=== PATIENT | male | born 1965 | race Caucasian/White ===

== ENCOUNTER 2017-07-25 08:10 | Emergency (ER) | payer OTHER ==
[~2017-07-25] VITALS: Ht 170.2 cm; Wt 67.2 kg
[~2017-07-25 08:10] MED LIST: ALPR0.25 PO; AMIO200T PO; AMOX1TAB12 PO; ASPI-621 PO; FURO-92 PO; HYDR-3245 PO; IPRA3AMP NPPB; LORA10TA62 PO; METO25TA35 PO/NG; POTA20TA14 PO; QUET50TA5 PO; WARF5TAB7 PO-COUM
[2017-07-25] MEDS ORDERED: OXYC-302 PO (08:46)
[2017-07-25] MEDS ORDERED: SODIUM CHLORIDE 0.9% 1,000ML IVBOLUS ONE (09:00)
[2017-07-25] MEDS ORDERED: SODIUM CHLORIDE FLUSH 10ML SYR IVF ONE (09:00)
[2017-07-25 09:11] LABS: HEMATOCRIT 42.8 % (39.2-51.8); HEMOGLOBIN 14.5 g/dL (13.7-18.0); WHITE BLOOD COUNT 5.1 x10^3/uL (3.4-10)
[2017-07-25 09:22] LABS: ASPARTATE AMINO TRANSFERASE 91 U/L (15-37); BLOOD UREA NITROGEN 14 mg/dL (7-18)
[2017-07-25 10:41] VITALS: BP 162/103
== END 2017-07-25 10:43 | disposition home or self-care (01) ==
LOC: ED 10:12
DX: R25.1 Tremor, unspecified (principal)
CPT/HCPCS: 36415; 71020; 80053; 83690; 85025; 93005; 96360; 99285; J7030

== ENCOUNTER 2019-02-19 10:46 | Inpatient (IN) | payer MEDICAID, OTHER ==
[~2019-02-19] VITALS: Ht 170.2 cm; Wt 63.1 kg
[~2019-02-19 10:46] MED LIST changes: -ASPI-621 PO; +ASPI81TA45 PO; -IPRA3AMP NPPB; +IPRA3AMP30 NPPB; +OXYC-302 PO; +WARF-36 PO-COUM; -WARF5TAB7 PO-COUM
--- NOTE | 2019-02-19 10:59 | NUR ---
PT BIB [facility] FOR A WITNESSED SYNCOPAL EVENT WITH POSSIBLE SEIZURE ACTIVITY LASTING 1 MINUTE PER FAMILY. PT STATES THAT HE HAD SOME ALCOHOL THIS AM. PT ALSO STATED THAT HE HAS HAD A DECREASED APPETITIE DUE TO AN UPSET STOMACH FOR A NUMBER OF DAYS. PT A&OX4. EKG DONE AND PRESENTED TO MD. PT PLACED ON BP, CARDAIC, AND CONT. PULSE OXIMETER. ASSESSMENT COMPLETED. IV STARTED IN FIELD. BLOOD GLUCOSE PER AMBULANCE: 154. LACERATION ON LEFT EYE BROW. JIMI NICHOLSON. CALL LIGHT IN REACH AND 2 SIDE RAILS UP. REPORT GIVEN TO DONTRELL TATE
--- NOTE | 2019-02-19 11:06 | NUR ---
C/O N/V x several days. Patient states he drinks up to 6 beers per day and has been unable to drink because of the N/V. Patient had one beer this AM. Tachycardic. Fluids hung. Other than minor pain from eyebrow lac, patient denies all complaints. A&Ox 4 and behaving appropriately with staff.
--- NOTE | 2019-02-19 11:35 | NUR ---
HR=90 after 1 L NS.
[2019-02-19] MEDS ORDERED: SODIUM CHLORIDE FLUSH 10ML SYR IVF ONE (12:00)
[2019-02-19] MEDS ORDERED: THIAMINE 100 MG in SODIUM CHLORIDE 0.9% 50 ML IVPB ONE (12:00)
[2019-02-19] MEDS ORDERED: LORazepam 2 MG/ML, 1ML IVPush PRN (12:00)
[2019-02-19] MEDS ORDERED: SODIUM CHLORIDE 0.9%, 500ML IVBOLUS ONE (12:30)
[2019-02-19 12:35] LABS: ALANINE AMINOTRANSFERASE 78 U/L (12-78); ALBUMIN 3.8 g/dL (3.4-5.0); ANION GAP 7 mmol/L (5-15); CALCIUM 8.9 mg/dL (8.5-10.1); CHLORIDE 100 mmol/L (98-107); CREATININE 0.71 mg/dL (0.7-1.3)
[2019-02-19 12:37] LABS: ALKALINE PHOSPHATASE 72 U/L (45-117); BILIRUBIN,TOTAL 0.8 mg/dL (0.2-1.0); TOTAL PROTEIN 8.1 g/dL (6.4-8.2)
[2019-02-19] MEDS ORDERED: DIPH,PERTUSS(ACELL),TET VAC/PF 0.5 ML IM-VACC ONE ×2 (12:39→13:00)
[2019-02-19] MEDS ORDERED: ONDANSETRON 2MG/ML, 2ML ONE (12:46)
[2019-02-19] MEDS ORDERED: MORPHINE SULFATE 4 MG/ML, 1ML ONE (12:46)
[2019-02-19 12:50] LABS: BASOPHILS # (AUTO) 0.01 x10^3/uL (0-0.1); BASOPHILS % (AUTO) 0 % (0-1); EOSINOPHILS # (AUTO) 0.01 x10^3/uL (0-0.4); EOSINOPHILS % (AUTO) 0 % (1-7); LYMPHOCYTES # (AUTO) 0.51 x10^3/uL (1-3.4); LYMPHOCYTES % (AUTO) 18 % (22-44); MD SCAN; MEAN CORPUSCULAR HEMOGLOBIN 33.7 pg (27.5-34.5); MEAN CORPUSCULAR HGB CONC 34.6 g/dL (33.2-36.2); MEAN CORPUSCULAR VOLUME 97.3 fL (81-97); MEAN PLATELET VOLUME 9.2 fL (7.4-10.4); MONOCYTES % (AUTO) 11 % (2-9); NEUTROPHILS # (AUTO) 2.01 x10^3/uL (1.8-6.8); NEUTROPHILS % (AUTO) 71 % (42-75); PLATELET COUNT 65 x10^3/uL (130-400); RED BLOOD COUNT 4.21 x10^6/uL (4.38-5.82); RED CELL DISTRIBUTION WIDTH 13.1 % (9.4-14.8)
--- NOTE | 2019-02-19 12:51 | NUR ---
C/O pain. Zofran and morphine admin. Thiamine running. VSS. No other needs.
[2019-02-19] MEDS ORDERED: ONDANSETRON 2MG/ML, 2ML IVPush ONE (13:00)
[2019-02-19] MEDS ORDERED: LIDOCAINE 1%-EPI 1:100K, 20ML SQ ONE (13:00)
[2019-02-19] MEDS ORDERED: MORPHINE SULFATE 4 MG/ML, 1ML IVPush PRN (13:00)
[2019-02-19] MEDS ORDERED: LIDOCAINE 1%-EPI 1:100K, 20ML ONE (13:08)
[2019-02-19] MEDS ORDERED: METO50TA82 PO (13:42)
--- NOTE | 2019-02-19 13:45 | NUR ---
PA student at bedside suturing patient.
--- NOTE | 2019-02-19 14:07 | NUR ---
Attempted report. RN unavailable.
--- NOTE | 2019-02-19 14:23 | NUR ---
Report to LEA Miller.
[2019-02-19] MEDS ORDERED: LABETALOL 20 MG/4 ML IVPush PRN (14:30)
[2019-02-19] MEDS ORDERED: ONDANSETRON ODT 4 MG PO PRN (14:30)
[2019-02-19] MEDS ORDERED: ONDANSETRON 2MG/ML, 2ML IVPush PRN (14:30)
[2019-02-19 14:55] LABS: FREE T4 (FREE THYROXINE) 1.01 ng/dL (0.76-1.46); TROPONIN I < 0.015 ng/mL (0.000-0.045)
[2019-02-19] MEDS ORDERED: LORazepam 2 MG/ML, 1ML IV PRN ×2 (15:00)
[2019-02-19] MEDS ORDERED: LORazepam 0.5MG TABLET PO PRN (15:00)
[2019-02-19] MEDS ORDERED: LORazepam 1MG TABLET PO PRN ×3 (15:00)
[2019-02-19] MEDS: METOPROLOL TARTRATE 50 MG TABLET PO SCH (17:32)
[2019-02-19] MEDS: MORPHINE SULFATE 4 MG/ML, 1ML IVPush PRN ×2 (17:32→21:33)
[2019-02-19 17:40] VITALS: BP 134/90
[2019-02-19] MEDS: POTASSIUM CHLORIDE 20 MEQ, MAGNESIUM SULFATE 1 GM, FOLIC ACID 1 MG, THIAMINE 200 MG, MV... IV SCH (18:38)
[2019-02-19] MEDS: SODIUM CHLORIDE 0.45% 1,000 ML IV SCH (19:24)
[2019-02-19 19:49] VITALS: BP 133/86
[2019-02-19 19:50] VITALS: BP 134/84
[2019-02-19 19:51] VITALS: BP 147/100
[2019-02-19 20:51] LABS: TROPONIN I < 0.015 ng/mL (0.000-0.045)
[2019-02-20] VITALS (7 sets, daily range): BP systolic 129–157; BP diastolic 83–107
[2019-02-20] MEDS: MORPHINE SULFATE 4 MG/ML, 1ML IVPush PRN ×2 (01:39→20:47)
[2019-02-20] MEDS: METOPROLOL TARTRATE 50 MG TABLET PO SCH ×2 (05:19→17:44)
[2019-02-20 05:53] LABS: CHLORIDE 102 mmol/L (98-107)
[2019-02-20 05:56] LABS: BASOPHILS # (AUTO) 0.01 x10^3/uL (0-0.1); BASOPHILS % (AUTO) 0 % (0-1); EOSINOPHILS # (AUTO) 0.07 x10^3/uL (0-0.4); EOSINOPHILS % (AUTO) 2 % (1-7); LYMPHOCYTES # (AUTO) 1.14 x10^3/uL (1-3.4); LYMPHOCYTES % (AUTO) 32 % (22-44); MD NO; MEAN CORPUSCULAR HEMOGLOBIN 33.3 pg (27.5-34.5); MEAN CORPUSCULAR HGB CONC 33.8 g/dL (33.2-36.2); MEAN CORPUSCULAR VOLUME 98.6 fL (81-97); MEAN PLATELET VOLUME 9.1 fL (7.4-10.4); MONOCYTES # (AUTO) 0.41 x10^3/uL (0.2-0.8); MONOCYTES % (AUTO) 12 % (2-9); NEUTROPHILS # (AUTO) 1.93 x10^3/uL (1.8-6.8); NEUTROPHILS % (AUTO) 54 % (42-75); PLATELET COUNT 50 x10^3/uL (130-400); RED BLOOD COUNT 4.06 x10^6/uL (4.38-5.82); RED CELL DISTRIBUTION WIDTH 13.1 % (9.4-14.8)
[2019-02-20 06:14] LABS: ALANINE AMINOTRANSFERASE 72 U/L (12-78); ALBUMIN 3.7 g/dL (3.4-5.0); ALKALINE PHOSPHATASE 81 U/L (45-117); ANION GAP 6 mmol/L (5-15); BILIRUBIN,TOTAL 0.9 mg/dL (0.2-1.0); CALCIUM 8.9 mg/dL (8.5-10.1); CHOL/HDL RATIO 2.8; CHOLESTEROL, TOTAL 187 mg/dL (140-239); CREATININE 0.77 mg/dL (0.7-1.3); HDL CHOL % 35 % (26-37); HDL CHOLESTEROL (DIRECT) 66 mg/dL (40-60); LDL CHOLESTEROL,CALCULATED 105 mg/dL (54-169); LDL/HDL RATIO 1.6 (0.5-3.0); TOTAL PROTEIN 7.8 g/dL (6.4-8.2); TRIGLYCERIDES 79 mg/dL (50-200); VLDL CHOLESTEROL 16 mg/dL (0-25)
[2019-02-20] MEDS: LORazepam 2 MG/ML, 1ML IV PRN ×2 (08:04→17:44)
[2019-02-20] MEDS: SENNA/DOCUSATE TABLET PO SCH (08:05)
[2019-02-20] MEDS: HYDROcodone/APAP 5/325 TABLET PO PRN ×2 (11:45→18:42)
[2019-02-20] MEDS: SODIUM CHLORIDE 0.45% 1,000 ML IV SCH ×2 (13:30→20:30)
[2019-02-20] MEDS: AMPICILLIN/SULBACTAM 3 GM in SODIUM CHLORIDE 0.9% 100 ML IV SCH ×2 (18:44→23:19)
[2019-02-20] MEDS: POTASSIUM CHLORIDE 20 MEQ, MAGNESIUM SULFATE 1 GM, FOLIC ACID 1 MG, THIAMINE 200 MG, MV... IV SCH (20:45)
[2019-02-20] MEDS: DOXYCYCLINE 100MG TABLET PO SCH (20:46)
[2019-02-21] MEDS: LORazepam 2 MG/ML, 1ML IV PRN ×6 (00:03→23:13)
[2019-02-21 02:00] VITALS: BP 160/90
[2019-02-21] MEDS: MORPHINE SULFATE 4 MG/ML, 1ML IVPush PRN (02:37)
[2019-02-21] MEDS: LORazepam 1MG TABLET PO PRN (03:51)
[2019-02-21] MEDS: SODIUM CHLORIDE 0.45% 1,000 ML IV SCH ×3 (04:30→18:11)
[2019-02-21 04:32] LABS: CLOSTRIDIUM DIFFICILE ANTIGEN NEGATIVE; CLOSTRIDIUM DIFFICILE TOXIN NEGATIVE (Negative)
[2019-02-21] MEDS: METOPROLOL TARTRATE 50 MG TABLET PO SCH ×2 (05:28→16:13)
[2019-02-21] MEDS: AMPICILLIN/SULBACTAM 3 GM in SODIUM CHLORIDE 0.9% 100 ML IV SCH ×4 (05:28→23:24)
[2019-02-21 06:11] LABS: ALBUMIN 3.6 g/dL (3.4-5.0); ANION GAP 7 mmol/L (5-15); CALCIUM 8.6 mg/dL (8.5-10.1); CHLORIDE 106 mmol/L (98-107)
[2019-02-21 06:14] LABS: ALANINE AMINOTRANSFERASE 66 U/L (12-78); ALKALINE PHOSPHATASE 89 U/L (45-117); BILIRUBIN,TOTAL 0.7 mg/dL (0.2-1.0); CREATININE 0.73 mg/dL (0.7-1.3); TOTAL PROTEIN 7.4 g/dL (6.4-8.2)
[2019-02-21 07:30] VITALS: BP 171/97
[2019-02-21 07:48] LABS: BASOPHILS # (AUTO) 0.01 x10^3/uL (0-0.1); BASOPHILS % (AUTO) 0 % (0-1); EOSINOPHILS # (AUTO) 0.04 x10^3/uL (0-0.4); EOSINOPHILS % (AUTO) 1 % (1-7); LYMPHOCYTES # (AUTO) 0.95 x10^3/uL (1-3.4); LYMPHOCYTES % (AUTO) 27 % (22-44); MEAN CORPUSCULAR HEMOGLOBIN 33.8 pg (27.5-34.5); MEAN CORPUSCULAR HGB CONC 34.4 g/dL (33.2-36.2); MEAN PLATELET VOLUME 9.9 fL (7.4-10.4); MONOCYTES # (AUTO) 0.51 x10^3/uL (0.2-0.8); MONOCYTES % (AUTO) 14 % (2-9); NEUTROPHILS # (AUTO) 2.07 x10^3/uL (1.8-6.8); NEUTROPHILS % (AUTO) 58 % (42-75); PLATELET COUNT 52 x10^3/uL (130-400); RED BLOOD COUNT 3.82 x10^6/uL (4.38-5.82); RED CELL DISTRIBUTION WIDTH 12.9 % (9.4-14.8)
[2019-02-21 07:53] LABS: MD SCAN
[2019-02-21] MEDS ORDERED: POTASSIUM CHLORIDE 10% 40 MEQ/30 ML UDC PO ONE (08:00)
[2019-02-21] MEDS ORDERED: POTASSIUM CHLORIDE 20 MEQ TAB.ER.PRT PO ONE (08:00)
[2019-02-21] MEDS: DOXYCYCLINE 100MG TABLET PO SCH ×2 (08:37→19:59)
[2019-02-21] MEDS: SENNA/DOCUSATE TABLET PO SCH (08:38)
[2019-02-21] MEDS ORDERED: CHLORDIAZEPOXIDE 25 MG CAPSULE PO PRN (10:00)
[2019-02-21 14:09] VITALS: BP 136/92
[2019-02-21] MEDS: CHLORDIAZEPOXIDE 25 MG CAPSULE PO SCH ×2 (16:14→19:59)
[2019-02-21 18:32] VITALS: BP 175/94
[2019-02-21 20:13] VITALS: BP 162/106
[2019-02-21] MEDS: POTASSIUM CHLORIDE 20 MEQ, MAGNESIUM SULFATE 1 GM, FOLIC ACID 1 MG, THIAMINE 200 MG, MV... IV SCH (20:44)
[2019-02-22 00:32] VITALS: BP 162/105
[2019-02-22] MEDS: LORazepam 1MG TABLET PO PRN (02:03)
[2019-02-22 03:17] VITALS: BP 163/100
[2019-02-22] MEDS: LORazepam 2 MG/ML, 1ML IV PRN ×6 (04:28→20:43)
[2019-02-22] MEDS: HYDROcodone/APAP 5/325 TABLET PO PRN (04:29)
[2019-02-22] MEDS ORDERED: HALOPERIDOL 5 MG/ML IM ONE (05:30)
[2019-02-22] MEDS ORDERED: HALOPERIDOL 5 MG/ML ONE (05:32)
[2019-02-22] MEDS: AMPICILLIN/SULBACTAM 3 GM in SODIUM CHLORIDE 0.9% 100 ML IV SCH ×4 (05:36→23:36)
[2019-02-22] MEDS: METOPROLOL TARTRATE 50 MG TABLET PO SCH ×2 (05:36→17:55)
[2019-02-22 06:11] LABS: MEAN CORPUSCULAR HEMOGLOBIN 33.6 pg (27.5-34.5); MEAN CORPUSCULAR HGB CONC 34.2 g/dL (33.2-36.2); MEAN CORPUSCULAR VOLUME 98.1 fL (81-97); RED BLOOD COUNT 3.92 x10^6/uL (4.38-5.82); RED CELL DISTRIBUTION WIDTH 13.2 % (9.4-14.8)
[2019-02-22 06:20] LABS: ALBUMIN 3.8 g/dL (3.4-5.0); ANION GAP 8 mmol/L (5-15); CALCIUM 9.1 mg/dL (8.5-10.1); CHLORIDE 109 mmol/L (98-107)
[2019-02-22 06:24] LABS: ALANINE AMINOTRANSFERASE 63 U/L (12-78); ALKALINE PHOSPHATASE 68 U/L (45-117); BILIRUBIN,TOTAL 0.8 mg/dL (0.2-1.0); CREATININE 0.62 mg/dL (0.7-1.3); TOTAL PROTEIN 7.8 g/dL (6.4-8.2)
[2019-02-22 06:32] LABS: BASOPHILS # (AUTO) 0.01 x10^3/uL (0-0.1); BASOPHILS % (AUTO) 0 % (0-1); EOSINOPHILS # (AUTO) 0.07 x10^3/uL (0-0.4); EOSINOPHILS % (AUTO) 2 % (1-7); LYMPHOCYTES # (AUTO) 1.18 x10^3/uL (1-3.4); LYMPHOCYTES % (AUTO) 27 % (22-44); MD SCAN; MEAN PLATELET VOLUME 10.1 fL (7.4-10.4); MONOCYTES # (AUTO) 0.82 x10^3/uL (0.2-0.8); MONOCYTES % (AUTO) 19 % (2-9); NEUTROPHILS # (AUTO) 2.23 x10^3/uL (1.8-6.8); NEUTROPHILS % (AUTO) 52 % (42-75); PLATELET COUNT 77 x10^3/uL (130-400)
[2019-02-22] MEDS: CHLORDIAZEPOXIDE 25 MG CAPSULE PO SCH ×3 (08:04→20:26)
[2019-02-22] MEDS: DOXYCYCLINE 100MG TABLET PO SCH ×2 (08:04→20:26)
[2019-02-22] MEDS: SENNA/DOCUSATE TABLET PO SCH (08:04)
[2019-02-22 08:26] VITALS: BP 152/95
[2019-02-22] MEDS: LABETALOL 5 MG/ML SYRINGE IVPush PRN (09:28)
[2019-02-22] MEDS: SODIUM CHLORIDE 0.45% 1,000 ML IV SCH ×2 (10:48→20:26)
[2019-02-22 10:58] VITALS: BP_SYST 147; BP_SYST 153; BP_DIAS 100; BP_DIAS 106
[2019-02-22 13:36] VITALS: BP 165/102
[2019-02-22] MEDS: POTASSIUM CHLORIDE 20 MEQ, MAGNESIUM SULFATE 1 GM, FOLIC ACID 1 MG, THIAMINE 200 MG, MV... IV SCH (18:46)
[2019-02-22 19:15] VITALS: BP 155/100
[2019-02-23 01:20] VITALS: BP 146/100
[2019-02-23] MEDS: LORazepam 2 MG/ML, 1ML IV PRN ×2 (03:06→11:53)
[2019-02-23] MEDS: AMPICILLIN/SULBACTAM 3 GM in SODIUM CHLORIDE 0.9% 100 ML IV SCH ×2 (05:03→10:02)
[2019-02-23] MEDS: METOPROLOL TARTRATE 50 MG TABLET PO SCH (05:03)
[2019-02-23] MEDS: HYDROcodone/APAP 5/325 TABLET PO PRN ×2 (05:06→11:53)
[2019-02-23] MEDS: SODIUM CHLORIDE 0.45% 1,000 ML IV SCH ×2 (05:12→11:58)
[2019-02-23 05:45] LABS: CHLORIDE 109 mmol/L (98-107)
[2019-02-23 05:55] LABS: ALANINE AMINOTRANSFERASE 56 U/L (12-78); ALBUMIN 3.6 g/dL (3.4-5.0); ALKALINE PHOSPHATASE 68 U/L (45-117); ANION GAP 8 mmol/L (5-15); BILIRUBIN,TOTAL 0.9 mg/dL (0.2-1.0); CREATININE 0.66 mg/dL (0.7-1.3); TOTAL PROTEIN 7.5 g/dL (6.4-8.2)
[2019-02-23 05:58] LABS: BASOPHILS # (AUTO) 0.02 x10^3/uL (0-0.1); BASOPHILS % (AUTO) 0 % (0-1); EOSINOPHILS # (AUTO) 0.13 x10^3/uL (0-0.4); EOSINOPHILS % (AUTO) 3 % (1-7); LYMPHOCYTES # (AUTO) 1.24 x10^3/uL (1-3.4); LYMPHOCYTES % (AUTO) 26 % (22-44); MD NO; MEAN CORPUSCULAR HEMOGLOBIN 33.3 pg (27.5-34.5); MEAN CORPUSCULAR HGB CONC 34.1 g/dL (33.2-36.2); MEAN CORPUSCULAR VOLUME 97.6 fL (81-97); MEAN PLATELET VOLUME 9.4 fL (7.4-10.4); MONOCYTES # (AUTO) 0.95 x10^3/uL (0.2-0.8); MONOCYTES % (AUTO) 20 % (2-9); NEUTROPHILS # (AUTO) 2.41 x10^3/uL (1.8-6.8); NEUTROPHILS % (AUTO) 51 % (42-75); PLATELET COUNT 104 x10^3/uL (130-400); RED BLOOD COUNT 3.86 x10^6/uL (4.38-5.82); RED CELL DISTRIBUTION WIDTH 13.5 % (9.4-14.8)
[2019-02-23 07:07] VITALS: BP_SYST 158; BP_SYST 169; BP_DIAS 102
[2019-02-23 07:36] VITALS: BP 166/107
[2019-02-23] MEDS: LABETALOL 5 MG/ML SYRINGE IVPush PRN (07:38)
[2019-02-23] MEDS: SENNA/DOCUSATE TABLET PO SCH (09:00)
[2019-02-23] MEDS: CHLORDIAZEPOXIDE 25 MG CAPSULE PO SCH (10:01)
[2019-02-23] MEDS: DOXYCYCLINE 100MG TABLET PO SCH (10:02)
[2019-02-23 12:12] VITALS: BP_SYST 171; BP_SYST 178; BP_DIAS 104; BP_DIAS 106
[2019-02-23] MEDS ORDERED: CHLORDIAZEPOXIDE 25 MG CAPSULE PO SCH (21:00)
== END 2019-02-23 14:43 | disposition left against medical advice (07) | DRG 73 ==
LOC: ED 12:58 → EDIP 13:19 → 4WST 14:46
PROVIDERS: ADMIT Internal Medicine; ATTEND Internal Medicine
PROC: 08QPXZZ Repair Left Upper Eyelid, External Approach (ICD-10-PCS; principal; 2019-02-19)
PROC: 0HQ1XZZ Repair Face Skin, External Approach (ICD-10-PCS; 2019-02-19)
DX: G90.8 Other disorders of autonomic nervous system (principal); J18.9 Pneumonia, unspecified organism; E87.2 Acidosis; F10.239 Alcohol dependence with withdrawal, unspecified; I50.30 Unspecified diastolic (congestive) heart failure; D64.9 Anemia, unspecified; D69.59 Other secondary thrombocytopenia; D75.89 Other specified diseases of blood and blood-forming organs; E86.0 Dehydration; F17.210 Nicotine dependence, cigarettes, uncomplicated; F31.9 Bipolar disorder, unspecified; F41.1 Generalized anxiety disorder; I11.0 Hypertensive heart disease with heart failure; I35.1 Nonrheumatic aortic (valve) insufficiency; I48.91 Unspecified atrial fibrillation; R56.9 Unspecified convulsions; Z53.21 Procedure and treatment not carried out due to patient leaving prior to being seen by health care provider; W01.0XXA Fall on same level from slipping, tripping and stumbling without subsequent striking against object, initial encounter; S01.112A Laceration without foreign body of left eyelid and periocular area, initial encounter; Y93.89 Activity, other specified; Y92.89 Other specified places as the place of occurrence of the external cause; Y99.8 Other external cause status; Z78.1 Physical restraint status; Z80.9 Family history of malignant neoplasm, unspecified; Z95.2 Presence of prosthetic heart valve
CPT/HCPCS: 36415; 99285; J7121; 70450; 70486; 71045; 80053; 80061; 80307; 82140; 82607; 83605; 83690; 83735; 84100; 84439; 84443; 84484; 85025; 87324; 90715; 93005; 93306; 93880; 95819; 96365; G0378; J0295; J2405; J3411; J3475; J3480; J1630; J2060; J3490; J7040